=== PATIENT | male | born 1960 | race Caucasian/White ===

== ENCOUNTER → 2017-06-05 | Outpatient (CLI) | payer BC ==
--- NOTE | 2017-06-06 13:51 | MR ---
EXAMINATION TYPE: MR iac wo/w con DATE OF EXAM: 06/05/2017 COMPARISON: Report of previous exam dated 11/08/2015 MR brain HISTORY: Regan hearing loss, moreso left. Rt ear ringing TECHNIQUE: Multiplanar, multisequence images of the brain and brainstem is performed without and with IV contras t, utilizing 10 mL intravenous Gadavist . Small [id number] and high resolution images obtained thr ough the internal auditory canals FINDINGS: Diffusion weighted images demonstrate no evidence of a recent infarct or other diffusion ab normality. There is no extra-axial fluid collection or significant white matter signal abnormality. Only scattered hyperintensities on inversion recovery and T2-weighted sequences present in the front al region, periventricular white matter of questionable clinical significance The ventricular system and cisternal spaces are normal in size and appearance. The brain volume is age appropriate. Semicir cular canals, cochlea show symmetric appearance. Midline structures demonstrate normal morphology. Cerebellopontine angles are normal. There are lilian l vascular flow voids. The craniocervical junction appears within normal limits. Minimal 2 mm nodularity present along the cochlear segment of the right cranial nerve VIII as describ ed on prior report on the right. Post contrast images demonstrate enhancement correlated to prior rep ort. The dural venous sinuses show mucosal thickening in the maxillary sinuses, sphenoid sinus and et hmoid air cells. The visualized sinuses are clear and the globes are intact. IMPRESSION: Stable findings by report with abnormal nodularity and enhancement along the cochlear seg ment of the right cranial nerve VIII is compatible with acoustic neuroma. Mild sinus disease.
== END ==
LOC: RADMRIMAIN 16:14
PROVIDERS: ATTEND Otolaryngology
DX: H93.3X9 Disorders of unspecified acoustic nerve (principal); D33.3 Benign neoplasm of cranial nerves; J32.9 Chronic sinusitis, unspecified
CPT/HCPCS: 70553; A9581

== ENCOUNTER → 2018-09-30 | Outpatient (CLI) | payer OTHER ==
--- NOTE | 2018-10-06 18:41 | ENG ---
ELECTRONYSTAGMOGRAM REPORT VNG INDICATIONS: Vertigo starting in 2014 associated with coronary stent placement, gradual onset, getting worse. Spells occurring 2-3 times a day, lasting 30-60 minutes. Dizziness can be triggered by going from a lying to a seated position, bending over or head-down position and in large crowds or busy improvements. The patient has bilateral hearing difficulties, onset about 2 years, with bilateral tinnitus of a steady nature. Patient has fullness and pressure in both ears. VNG FINDINGS: Saccades shows intact peak velocities, accuracies and latencies. Gaze with fixation shows no nystagmus in any of the directions of gaze, including centrally with vision denied. Tracking shows no breakups at faster or slower speeds. Optokinetic nystagmus shows significant asymmetry, more than 50% at faster and slower speeds. Static position testing in 6 different positions with eyes opened and with vision denied shows no nystagmus. [place]-Hallpike maneuvers show strong horizontal nystagmus +25 degrees on the right; however, patient without dizziness; and -17 degrees on the left, with the patient being dizzy. Caloric testing showed 10 degrees per second response from the right and 7 degrees per second response from the left. The patient has bilateral caloric weakness. IMPRESSIONS: 1. Bilateral caloric weakness which is borderline and not showing any significant asymmetry. Another test such as the head thrust test or, if available, active and passive rotation testing required to confirm presence of bilateral vestibular dysfunction. 2. There is asymmetry of optokinetic nystagmus at faster and slower speeds, which is an indicator favoring central nervous system dysfunction; however, tracking which is partially redundant with OPK is unremarkable. 3. [place]-Hallpike maneuvers suggest left benign positional vertigo. MMODL / IJN: [id number] /
== END ==
LOC: NEUROMAIN 06:52
PROVIDERS: ATTEND Otolaryngology
DX: R42 Dizziness and giddiness (principal)
CPT/HCPCS: 92537; 92540